=== PATIENT | male | born 1970 | race Caucasian/White ===

== ENCOUNTER 2016-08-26 11:38 | Emergency (ER) | payer OTHER ==
[2016-08-26 12:25] LABS: APPEARANCE,URINE Clear; BILIRUBIN,URINE NEGATIVE (NEGATIVE); COLOR,URINE Yellow; GLUCOSE, URINE (UA) NEGATIVE (NEGATIVE); KETONES,URINE NEGATIVE (NEGATIVE); LEUKOCYTE ESTERASE ,URINE NEGATIVE (NEGATIVE); NITRATE,URINE NEGATIVE (NEGATIVE); OCCULT BLOOD,URINE 1+ (NEG-TRACE); PH,URINE 5.5; UROBILINOGEN,URINE 0.2 (0.2-1.0 EU)
[2016-08-26 12:39] VITALS: BP 130/86; PULSE 95; RESP 20; TEMP 99.7; O2SAT 97
[2016-08-26 12:42] LABS: RBC,URINE 0-3 (0-3AV/HPF); WBC,URINE 0-1 (0-5AV/HPF)
== END 2016-08-26 13:32 | disposition home or self-care (01) | DRG 552 ==
LOC: ED 11:38
DX: M54.5 Low back pain (principal); G89.29 Other chronic pain
CPT/HCPCS: 74020; 81001; 99282

== ENCOUNTER 2017-03-15 23:48 | Emergency (ER) | payer OTHER ==
[2017-03-16] MEDS ORDERED: OXYCODONE HYDROCHLORIDE 10 MG TER PO SCH (00:15)
[2017-03-16 00:19] VITALS: BP 101/67; PULSE 74; RESP 18; TEMP 98.1; O2SAT 94
[2017-03-16] MEDS ORDERED: OXYCODONE HYDROCHLORIDE 5 MG TAB ONE (00:24)
== END 2017-03-16 00:33 | disposition home or self-care (01) | DRG 93 ==
LOC: ED 23:48
DX: G89.4 Chronic pain syndrome (principal); M54.9 Dorsalgia, unspecified; Z98.1 Arthrodesis status
CPT/HCPCS: 99282

== ENCOUNTER 2017-05-13 16:22 | Emergency (ER) | payer OTHER ==
[2017-05-13] MEDS ORDERED: APAP/HYDROCODONE 325/5 TAB PO ONE (16:39)
[2017-05-13 16:45] VITALS: BP 121/87; PULSE 88; RESP 16; TEMP 97.5; O2SAT 97
[2017-05-13] MEDS ORDERED: APAP/HYDROCODONE 325/5 TAB ONE (16:46)
[2017-05-13 17:05] LABS: MEAN CORPUSCULAR HGB CONC 31.7 gm/dl (32.0-36.0)
[2017-05-13 17:16] LABS: CALCIUM 8.7 mg/dl (8.5-10.1); POTASSIUM 3.6 mMol/L (3.5-5.1)
[2017-05-13 17:48] LABS: APPEARANCE,URINE Clear; BILIRUBIN,URINE NEGATIVE (NEGATIVE); COLOR,URINE Yellow; GLUCOSE, URINE (UA) NEGATIVE (NEGATIVE); KETONES,URINE NEGATIVE (NEGATIVE); LEUKOCYTE ESTERASE ,URINE NEGATIVE (NEGATIVE); NITRATE,URINE NEGATIVE (NEGATIVE); OCCULT BLOOD,URINE NEGATIVE (NEG-TRACE); PH,URINE 5.5; UROBILINOGEN,URINE 0.2 (0.2-1.0 EU)
[2017-05-13 18:24] LABS: RBC,URINE NEG (0-3AV/HPF); WBC,URINE NEG (0-5AV/HPF)
== END 2017-05-13 17:10 | disposition left against medical advice (07) | DRG 392 ==
LOC: ED 16:22
DX: R10.32 Left lower quadrant pain (principal)
CPT/HCPCS: 36415; 80048; 81001; 85027; 99282

== ENCOUNTER 2017-05-14 10:25 | Emergency (ER) | payer OTHER ==
[2017-05-14 10:51] VITALS: RESP 20; TEMP 97.9
[2017-05-14] MEDS ORDERED: KETOROLAC TROMETHAMINE 30 MG/ML SOL ONE (11:03)
[2017-05-14] MEDS ORDERED: KETOROLAC TROMETHAMINE 30 MG/ML SOL IM ONE (11:08)
[2017-05-14 11:25] LABS: APPEARANCE,URINE Clear; BILIRUBIN,URINE NEGATIVE (NEGATIVE); COLOR,URINE Yellow; GLUCOSE, URINE (UA) NEGATIVE (NEGATIVE); KETONES,URINE NEGATIVE (NEGATIVE); LEUKOCYTE ESTERASE ,URINE NEGATIVE (NEGATIVE); NITRATE,URINE NEGATIVE (NEGATIVE); OCCULT BLOOD,URINE NEGATIVE (NEG-TRACE); UROBILINOGEN,URINE 0.2 (0.2-1.0 EU)
[2017-05-14 11:38] LABS: RBC,URINE 0-1 (0-3AV/HPF); WBC,URINE 0-1 (0-5AV/HPF)
[2017-05-14 12:44] VITALS: BP 124/86; PULSE 84; O2SAT 93
== END 2017-05-14 11:47 | disposition home or self-care (01) | DRG 948 ==
LOC: ED 10:25
DX: G89.18 Other acute postprocedural pain (principal); M25.552 Pain in left hip; R10.32 Left lower quadrant pain
CPT/HCPCS: 81001; 99282; J1885

== ENCOUNTER 2017-11-04 19:52 | Emergency (ER) | payer OTHER ==
[2017-11-04 21:06] VITALS: BP 125/77; PULSE 50; RESP 18; TEMP 97.2; O2SAT 96
== END 2017-11-04 21:20 | disposition left against medical advice (07) | DRG 951 ==
LOC: ED 19:52
DX: Z53.21 Procedure and treatment not carried out due to patient leaving prior to being seen by health care provider (principal)

== ENCOUNTER 2017-11-22 03:48 | Emergency (ER) | payer OTHER ==
[2017-11-22 03:58] VITALS: RESP 20; TEMP 96.9; O2SAT 97
[2017-11-22 04:13] VITALS: BP 174/104; PULSE 57
[2017-11-22] MEDS ORDERED: CYCLOBENZAPRINE 10 MG TAB PO ONE (04:49)
[2017-11-22] MEDS ORDERED: CYCLOBENZAPRINE 10 MG TAB ONE (04:50)
== END 2017-11-22 04:54 | disposition home or self-care (01) | DRG 552 ==
LOC: ED 03:48
DX: M54.5 Low back pain (principal); G89.29 Other chronic pain
CPT/HCPCS: 99282; A9270-GY

== ENCOUNTER 2018-02-24 12:20 | Emergency (ER) | payer OTHER ==
[2018-02-24 12:36] VITALS: BP 155/87; PULSE 71; RESP 20; O2SAT 95
[2018-02-24] MEDS ORDERED: ONDANSETRON HCL 4 MG/2 ML SOL IV ONE (13:10)
== END 2018-02-24 13:15 | disposition left against medical advice (07) | DRG 552 ==
LOC: ED 12:20
DX: M54.5 Low back pain (principal); Z53.21 Procedure and treatment not carried out due to patient leaving prior to being seen by health care provider
CPT/HCPCS: 99281; 99282

== ENCOUNTER 2019-01-31 11:31 | Emergency (ER) | payer OTHER | END 2019-01-31 12:35 | disposition home or self-care (01) | LOC: ED 11:31 ==